=== PATIENT | female | born 1985 ===

== ENCOUNTER 2017-11-09 14:56 | Emergency (ER) | payer BC ==
[2017-11-09 15:25] VITALS: BMI 22.7
[2017-11-09 15:26] VITALS: RESP 18
--- NOTE | 2017-11-09 16:25 | ED PDOC ---
Arrival/HPI - General Historian: Patient - History of Present Illness Time/Duration: < week Symptom Onset: Gradual Symptom Course: Unchanged Quality: Cramping Severity Level: 7 Activities at Onset: Rest <Shawn Hong - Last Filed: 11/09/17 17:18> <Galindo Miller - Last Filed: 11/09/17 19:18> - General Chief Complaint: Abdominal Pain Time Seen by Provider: 11/09/17 15:34 - History of Present Illness Narrative History of Present Illness (Text): 11/09/17 16:22 PGY-[address] Miller Patient is a 32 year old with no known signficant PMHx who presents with crampy abdominal pain and discharge. Pt states that she began experiencing intermittent crampy, nonradiating, epigastric abdominal pain just over one week ago before missing her period on 11/01. On Saturday 11/04 the patient states she took a home test which was positive. In the past three days, patient reports that she has been noticing clear, brownish discharge when she wipes after going to the bathroom and came to the ED today because of concern for the health of her possible . Patient states that her first was without complications and delivered via at full term. Patient denies smoking, alcohol, drug use, any previous history of STDs. She has not yet seen a doctor since her positive test on the . Patient complains only of mild headaches and minor dizziness when standing. Denies chest pain, back pain, shortness of breath, fevers or chills, nausea, vomiting, diarrhea, bloody stools, pedal edema, paresthesias, painful urination 11/09/17 17:09 (Shawn Hong) Past Medical History - Provider Review Nursing Documentation Reviewed: Yes - Infectious Disease Hx of Infectious Diseases: None - Tetanus Immunization Tetanus Immunization: Unknown - Reproductive Menopause: No Currently : Unknown - Past Medical History Past Medical History: Non-Contributing - Psychiatric Hx Substance Use: No - Surgical History Hx Section: Yes (x1) <Shawn Hong - Last Filed: 11/09/17 17:18> - Provider Review Nursing Documentation Reviewed: Yes <Galindo Miller - Last Filed: 11/09/17 19:18> Family/Social History Family/Social History: No Known Family HX Smoking Status: Never Smoked Hx Alcohol Use: No Hx Substance Use: No <Shawn Hong - Last Filed: 11/09/17 17:18> - Physician Review Nursing Documentation Reviewed: Yes <AngelaGalindo Mustapha - Last Filed: 11/09/17 19:18> Allergies/Home Meds <Shawn Hong - Last Filed: 11/09/17 17:18> <Galindo Miller Mustapha - Last Filed: 11/09/17 19:18> Allergies/Adverse Reactions: Allergies Penicillins Allergy (Verified 11/09/17 15:24) RASH Home Medications: Home Meds Medication Instructions Recorded Confirmed No Known Home Med 11/09/17 11/09/17 Review of Systems - Review of Systems Constitutional: Normal. absent: Fatigue, Fevers, Night Sweats Eyes: Normal. absent: Vision Changes ENT: Normal. absent: Sore Throat, Rhinorrhea Respiratory: Normal. absent: SOB, Cough, Sputum, Wheezing Cardiovascular: Normal. absent: Chest Pain, Palpitations, Edema, BUSBY Gastrointestinal: Abdominal Pain. absent: Stool Changes, Constipation, Diarrhea , Nausea, Vomiting, Hematochezia, Hematemesis Genitourinary Female: Vaginal Discharge (+small amount serous brown vaginal discharge). absent: Dysuria, Frequency, Hematuria Skin: absent: Rash, Pruritis Neurological: Normal. absent: Headache, Dizziness, Focal Weakness Hemo/Lymphatic: absent: Easy Bleeding, Easy Bruising <Shawn Hong - Last Filed: 11/09/17 17:18> Physical Exam Vital Signs Reviewed: Yes Temperature: Afebrile Blood Pressure: Normal Pulse: Regular Respiratory Rate: Normal Appearance: Positive for: Well-Appearing, Non-Toxic, Comfortable Pain Distress: None Mental Status: Positive for: Alert and Oriented X 3. No: Confused, Agitated - Systems Exam Head: Present: Atraumatic, Normocephalic Pupils: Present: PERRL Extroacular Muscles: Present: EOMI Conjunctiva: Present: Normal. No: Injected, Icteric Mouth: Present: Moist Mucous Membranes, Normal Lips, Normal Tounge Pharnyx: Present: Normal. No: ERYTHEMA, EXUDATE Nose (External): Present: Atraumatic Respiratory/Chest: Present: Clear to Auscultation, Good Air Exchange. No: Respiratory Distress, Accessory Muscle Use, Wheezes, Decreased Breath Sounds, Rales, Rhonchi Cardiovascular: Present: Regular Rate and Rhythm, Normal S1, S2. No: Murmurs Abdomen: Present: Normal Bowel Sounds. No: Tenderness, Distention, Peritoneal Signs, Rebound, Guarding Upper Extremity: Present: Normal Inspection, NORMAL PULSES. No: Cyanosis, Edema Lower Extremity: Present: Normal Inspection, NORMAL PULSES. No: Edema Neurological: Present: GCS=15, CN II-XII Intact, Speech Normal, Motor Func Grossly Intact, Normal Sensory Function, Gait Normal Skin: Present: Warm, Dry, Normal Color. 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 spontaneous vs. ectopic vs non- related causes (endometriosis, ruptured ovarian cyst, UTI) Urinalysis + Beta-HCG to confirm and r/o UTI Beta-quant - If >1500 will perform abdominal US to assess IUP vs ectopic, If < 1500 repeat in 48 hours to trend and r/o spontaneous , f/u with abd US when >1500 If is confirmed in the absence of any acute complications, plan to follow up outpatient for routine care 11/09/17 16:54 11/09/17 17:19 Beta-Quant 8530, Transvaginal US ordered (Shawn Hong) 11/09/17 In agreement with resident note, which includes further HPI details. Patient was seen and evaluated with resident, came up with plan and treatment together. 32 year old F p/w abdominal cramping in . On exam, no abdominal tenderness. 11/09/17 18:15 Pelvic ultrasound: Creator : Keegan Stanley MD FINDINGS: Uterus measures 4.8 x 4.5 x 7.5 cm. Gestational sac identified without pole. Gestational sac measurement 0.69 cm out of range for assessment of reliable gestational age. Yolk sac is identified. Right ovary 3 x 2.9 x 3.1 cm. Simple cyst 2.4 x 2.4 x 2.4 cm. Left ovary 0.9 x 1.1 x 2.6 cm. IMPRESSION: Early intrauterine gestation based on gestational sac and yolk sac. No pole is identified. Additional benign and/or incidental findings described above. O+ blood type. Urinalysis negative for infection. Discharged home, tylenol for pain as needed, f/u OBGYN, instructed to return to Emergency department for worsening pain, bleeding, dyspnea, or any other problem. (Galindo Miller) - Lab Interpretations Lab Results: 11/09/17 16:22 11/09/17 16:22 Lab Results 11/09/17 18:46: Urine Color Yellow, Urine Appearance Clear, Urine pH 6.0, Ur Specific [place] 1.025, Urine Protein Negative, Urine Glucose (UA) Negative, Urine Ketones Negative, Urine Blood Negative, Urine Nitrate Negative, Urine Bilirubin Negative, Urine Urobilinogen 0.2, Ur Leukocyte Esterase Negative, Urine HCG, Qual Negative 11/09/17 16:22: Blood Type O POSITIVE, Antibody Screen Negative, BBK History Checked No verified bt 11/09/17 16:22: Beta HCG, Quant 8529.60 H 11/09/17 16:22: Sodium 141, Potassium 4.1, Chloride 101, Carbon Dioxide 26, Anion Gap 18, BUN 12, Creatinine 0.7, Est GFR ( Amer) > 60, Est GFR (Non- Af Amer) > 60, Random Glucose 92, Calcium 9.9, Total Bilirubin 1.0, AST 36, ALT 26, Alkaline Phosphatase 70, Total Protein 8.6 H, Albumin 4.9 H, Globulin 3.7, Albumin/Globulin Ratio 1.3 11/09/17 16:22: WBC 10.2, RBC 4.12, Hgb 12.5, Hct 36.6, MCV 88.8, MCH 30.3, MCHC 34.2, RDW 12.6, Plt Count 267, MPV 11.3 H, Gran % 68.6 H, Lymph % (Auto) 23.3, [place] % (Auto) 6.8 H, Eos % (Auto) 0.8 L, Baso % (Auto) 0.5, Gran # 6.96 H , Lymph # (Auto) 2.4, [place] # (Auto) 0.7 H, Eos # (Auto) 0.1, Baso # (Auto) 0.05 - RAD Interpretation Radiology Orders: 11/09/17 16:13 OB TRANSVAGINAL [US] Stat Disposition/Present on Arrival - Present on Arrival Any Indicators Present on Arrival: No History of DVT/PE: No History of Uncontrolled Diabetes: No Urinary Catheter: No History of Decub. Ulcer: No History Surgical Site Infection Following: None - Disposition Have Diagnosis and Disposition been Completed?: Yes Disposition Time: 17:08 <Shawn Hong - Last Filed: 11/09/17 17:18> - Disposition Patient Plan: Discharge <Galindo Miller - Last Filed: 11/09/17 19:18> - Disposition Diagnosis: Abdominal pain during Disposition: HOME/ ROUTINE Condition: FAIR Discharge Instructions (ExitCare): Threatened Miscarriage Referrals: Gypsy Romero MD [Staff Provider] - Follow up with primary Forms: [employer] ([place])
[2017-11-09 16:32] LABS: BASO # 0.05 K/mm3 (0.0-2.0); BASO % 0.5 % (0.0-3.0); EOS # 0.1 (0.0-0.7); EOS % 0.8 % (1.5-5.0); GRAN # 6.96 (1.4-6.5); GRAN % 68.6 % (50.0-68.0); HEMOGLOBIN 12.5 g/dL (12.0-16.0); LYMPH # 2.4 (1.2-3.4); LYMPH % 23.3 % (22.0-35.0); MEAN CELL VOLUME 88.8 fl (80.0-105.0); MEAN CORPUSCULAR HEMOGLOBIN 30.3 pg (25.0-35.0); MEAN CORPUSCULAR HGB CONC 34.2 g/dl (31.0-37.0); MEAN PLATELET VOLUME 11.3 fl (7.0-11.0); MONO # 0.7 (0.1-0.6); MONO % 6.8 % (1.0-6.0); RBC 4.12 10^6/uL (3.5-6.1); RED CELL DISTRIBUTION WIDTH 12.6 % (11.5-14.5); WHITE BLOOD COUNT 10.2 10^3/ul (4.5-11.0)
[2017-11-09 17:02] LABS: ALB/GLOB RATIO 1.3 (1.1-1.8); ALBUMIN 4.9 g/dL (3.0-4.8); ALT/SGPT 26 U/L (7-56); AST/SGOT 36 U/L (14-36); BLOOD UREA NITROGEN 12 mg/dL (7-21); CALCIUM 9.9 mg/dL (8.4-10.5); GFR AFRICAN-AMERICAN > 60; GFR NON-AFRICAN AMERICAN > 60
--- NOTE | 2017-11-09 17:52 | US ---
Date of service: 11/09/2017 PROCEDURE: Pelvic ultrasound HISTORY: vag bleed/pain in preg, assess cervix LMP 10/02/2017. COMPARISON: None available. TECHNIQUE: Standard protocol for this study/examination. FINDINGS: Uterus measures 4.8 x 4.5 x 7.5 cm. Gestational sac identified without pole. Gestational sac measurement 0.69 cm out of range for assessment of reliable gestational age. Yolk sac is identified. Right ovary 3 x 2.9 x 3.1 cm. Simple cyst 2.4 x 2.4 x 2.4 cm. Left ovary 0.9 x 1.1 x 2.6 cm. IMPRESSION: Early intrauterine gestation based on gestational sac and yolk sac. No pole is identified Additional benign and/or incidental findings described above.
[2017-11-09 18:58] LABS: HCG,QUALITATIVE URINE NEGATIVE (NEGATIVE); URINE APPEARANCE CLEAR (CLEAR); URINE COLOR YELLOW (YELLOW)
[2017-11-09 18:59] LABS: URINE BILIRUBIN NEGATIVE (NEGATIVE); URINE BLOOD NEGATIVE (NEGATIVE); URINE GLUCOSE (UA) NEGATIVE (NEGATIVE); URINE LEUKOCYTE ESTERASE NEGATIVE Leu/uL (NEGATIVE); URINE PROTEIN NEGATIVE mg/dL (<30 mg/dL); URINE UROBILINOGEN 0.2 E.U./dL (<1 E.U./dL)
[2017-11-09 19:14] VITALS: BP 129/77; PULSE 99; TEMP 98
[2017-11-09 19:15] VITALS: O2SAT 98
== END 2017-11-09 19:15 | disposition home or self-care (01) ==
LOC: ED 14:56
DX: O26.891 Other specified pregnancy related conditions, first trimester (principal); R10.9 Unspecified abdominal pain; Z3A.00 Weeks of gestation of pregnancy not specified

== ENCOUNTER 2017-11-22 16:58 | Emergency (ER) | payer BC ==
[2017-11-22 17:00] VITALS: BMI 22.7
--- NOTE | 2017-11-22 17:22 | ED PDOC ---
Arrival/HPI - General Time Seen by Provider: 11/22/17 17:02 Historian: Patient - History of Present Illness Narrative History of Present Illness (Text): 11/22/17 17:25 32 y/o female, no significant pmh, allergic to penicillin, LMP 09/21/2017, , c/o vaginal spotting and pelvic cramp started yesterday with no fall or trauma. Aching pain, on and off, noted to have spotting when using the bathroom , no active bleeding, no abdominal pain, eating and drinking well, no night sweat, no dizziness, no change in vision, no change in appetite, no other medical or psychological complaints. Past Medical History - Provider Review Nursing Documentation Reviewed: Yes - Infectious Disease Hx of Infectious Diseases: None - Tetanus Immunization Tetanus Immunization: Unknown - Reproductive Menopause: No - Past Medical History Past Medical History: Non-Contributing - Cardiac Hx Cardiac Disorders: No - Endocrine/Metabolic Hx Endocrine Disorders: No - Psychiatric Hx Substance Use: No - Surgical History Hx Section: Yes (x1) - Anesthesia Hx Anesthesia: No Family/Social History - Physician Review Nursing Documentation Reviewed: Yes Family/Social History: Unknown Family HX Smoking Status: Never Smoked Hx Alcohol Use: No Hx Substance Use: No Allergies/Home Meds Allergies/Adverse Reactions: Allergies Penicillins Allergy (Verified 11/09/17 15:24) RASH Home Medications: Home Meds Medication Instructions Recorded Confirmed No Known Home Med 11/09/17 11/22/17 Review of Systems - Review of Systems Constitutional: absent: Fatigue, Fevers Eyes: absent: Vision Changes ENT: absent: Hearing Changes Respiratory: absent: SOB, Cough Cardiovascular: absent: Chest Pain Gastrointestinal: absent: Abdominal Pain, Nausea, Vomiting Genitourinary Female: Vaginal Bleeding. absent: Dysuria, Frequency Musculoskeletal: absent: Arthralgias, Back Pain Skin: absent: Rash, Pruritis Neurological: absent: Headache, Dizziness Psychiatric: absent: Anxiety, Depression Physical Exam Vital Signs Reviewed: Yes Vital Signs Temp Pulse Resp BP Pulse Ox 11/22/17 19:23 85 18 111/66 100 11/22/17 17:47 98.3 F 11/22/17 17:43 87 18 104/58 L 100 11/22/17 17:12 99.2 F 98 H 18 140/75 100 Temperature: Afebrile Blood Pressure: Normal Pulse: Regular Respiratory Rate: Normal Appearance: Positive for: Well-Appearing, Non-Toxic, Comfortable Pain Distress: Mild Mental Status: Positive for: Alert and Oriented X 3 - Systems Exam Head: Present: Atraumatic, Normocephalic Pupils: Present: PERRL Extroacular Muscles: Present: EOMI Conjunctiva: Present: Normal Mouth: Present: Moist Mucous Membranes Neck: Present: Normal Range of Motion Respiratory/Chest: Present: Clear to Auscultation, Good Air Exchange. No: Respiratory Distress, Accessory Muscle Use Cardiovascular: Present: Regular Rate and Rhythm, Normal S1, S2. 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 ). No: Vaginal Discharge, Vaginal Bleeding, Vaginal Lesions, Adenexal Tenderness, Adenexal Mass , Cervical Motion Tendernes, Odor Back: Present: Normal Inspection Upper Extremity: Present: Normal Inspection. No: Cyanosis, Edema Lower Extremity: Present: Normal Inspection. No: Edema Neurological: Present: GCS=15, CN II-XII Intact, Speech Normal, Motor Func Grossly Intact, Gait Normal, Memory Normal Skin: Present: Warm, Dry, Normal Color. No: Rashes Psychiatric: Present: Alert, Oriented x 3, Normal Insight, Normal Concentration Medical Decision Making ED Course and Treatment: 11/22/17 17:27 Differential: Threatened vs. ectopic vs. UTI -Labs/betahcg/type and screen/ua -transvaginal sonogram -IVF/tylenol 650mg po -Observe and reassess 11/22/17 19:45 -There is no visible active bleeding or blood clot noted. -Transvaginal sonogram: Seven weeks 2 days live intrauterine gestation. Gestational concordance documented. -labs are non-significant except wbc 11.5 (afebrile, likely stress [place]) [place] [address] [place] 8529 -UA show no UTI -Blood type: O+ -Pt. feeling much better, no active bleeding, no pain, all labs/radiology results discussed with the patient. -Discharge home with education on continue tylenol at home as needed, bed rest, no sex until clear by the obgyn, follow up with your own pmd and obgyn within 2 days and check your cbc again as well, return to the ER for any new or worsening signs or symptoms. - Lab Interpretations Lab Results: 11/22/17 17:30 11/22/17 17:30 Lab Results 11/22/17 17:30: Blood Type O POSITIVE, Antibody Screen Negative, BBK History Checked Patient has bt 11/22/17 17:30: WBC 11.5 H, RBC 4.06, Hgb 12.5, Hct 36.0, MCV 88.7, MCH 30.8, MCHC 34.7, RDW 12.7, Plt Count 262, MPV 11.5 H, Gran % 64.0, Lymph % (Auto) 23.8 , [place] % (Auto) 9.7 H, Eos % (Auto) 2.2, Baso % (Auto) 0.3, Gran # 7.39 H, Lymph # (Auto) 2.7, [place] # (Auto) 1.1 H, Eos # (Auto) 0.3, Baso # (Auto) 0.03 11/22/17 17:30: Beta HCG, Quant 44927.00 H 11/22/17 17:30: Sodium 141, Potassium 3.5 L, Chloride 100, Carbon Dioxide 26, Anion Gap 19, BUN 10, Creatinine 0.5 L, Est GFR ( Amer) > 60, Est GFR ( Non-Af Amer) > 60, Random Glucose 89, Calcium 10.0, Total Bilirubin 0.9, AST 25 , ALT 26, Alkaline Phosphatase 84, Total Protein 9.0 H, Albumin 5.0 H, Globulin 4.0, Albumin/Globulin Ratio 1.3 11/22/17 17:30: Urine Color Yellow, Urine Appearance Clear, Urine pH 6.0, Ur Specific [place] >= 1.030, Urine Protein Negative, Urine Glucose (UA) Negative, Urine Ketones Trace H, Urine Blood Negative, Urine Nitrate Negative, Urine Bilirubin Negative, Urine Urobilinogen 0.2, Ur Leukocyte Esterase Negative - RAD Interpretation Radiology Orders: 11/22/17 17:24 OB TRANSVAGINAL [US] Stat Cardiac activity: Present Rate: 156 BPM Measurements: [place] rump length: 1.41 cm Gestational age based on CRL 7 weeks 5 days Gestational age 6 weeks 5 days based on gestational sac measurement 2.12 cm Gestational age derived from LMP: 7 weeks 2 days MANAV based on LMP: 07/09/2018. MANAV based on biometry: 07/09/2018. Gestational concordance documented. Yolk sac identified Cervix: No Cervical abnormalities: Negative examination for cervical dilatation or effacement. Closed cervix measuring 3.72 cm Subchorionic hemorrhage: None UTERUS: 4.8 x 6.9 x 9.0 cm. ADNEXA: Right: 3.2 x 4 x 4.3 cm. Simple cysts, presumed corpus luteum cyst 2.5 x 2.3 x 3 cm. Normal Doppler arterial waveform documented. Left: 1.5 x 2 x 3.0 cm. Normal Doppler arterial waveform documented Fluid in the cul-de-sac: None IMPRESSION: Seven weeks 2 days live intrauterine gestation. Gestational concordance documented. 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 - Medication Orders Current Medication Orders: Discontinued Medications Acetaminophen (Tylenol 325mg Tab) 650 mg PO STAT STA Stop: 11/22/17 17:25 Last Admin: 11/22/17 17:42 Dose: 650 mg Sodium Chloride (Sodium Chloride 0.9%) 1,000 mls @ 999 mls/hr IV .Q1H1M STA Stop: 11/22/17 18:24 Last Admin: 11/22/17 17:41 Dose: 999 mls/hr eMAR Start Stop Document 11/22/17 17:41 SF (Rec: 11/22/17 17:41 SF [facility] [id number] Intravenous Solution Start Date 11/22/17 Start Time 17:41 End Date 11/22/17 End time 18:42 Total Infusion Time 61 - [place] / COUNTY EXTENSION AGENT / Resident Statement MD/DO has reviewed & agrees with the documentation as recorded. Disposition/Present on Arrival - Present on Arrival Any Indicators Present on Arrival: No History of DVT/PE: No History of Uncontrolled Diabetes: No Urinary Catheter: No History of Decub. Ulcer: No History Surgical Site Infection Following: None - Disposition Have Diagnosis and Disposition been Completed?: Yes Diagnosis: , Vaginal bleeding Disposition: HOME/ ROUTINE Disposition Time: 19:39 Patient Plan: Discharge Patient Problems: Current Active Problems Problem Status Onset Acute Vaginal bleeding Acute Condition: IMPROVED Additional Instructions: -Discharge home with education on continue tylenol at home as needed, bed rest, no sex until clear by the obgyn, follow up with your own pmd and obgyn within 2 days and check your cbc again as well, return to the ER for any new or worsening signs or symptoms. Referrals: Rob Edmonds MD [Staff Provider] - Follow up with primary [facility] [place]] - Follow up with primary Forms: WORK NOTE
[2017-11-22] MEDS ORDERED: Sodium Chloride 0.9% 1,000 ML IV STA (17:24)
[2017-11-22 17:45] VITALS: RESP 18; O2SAT 100
[2017-11-22 17:45] LABS: URINE APPEARANCE CLEAR (CLEAR); URINE BILIRUBIN NEGATIVE (NEGATIVE); URINE BLOOD NEGATIVE (NEGATIVE); URINE COLOR YELLOW (YELLOW); URINE GLUCOSE (UA) NEGATIVE (NEGATIVE); URINE LEUKOCYTE ESTERASE NEGATIVE Leu/uL (NEGATIVE); URINE PROTEIN NEGATIVE mg/dL (<30 mg/dL); URINE UROBILINOGEN 0.2 E.U./dL (<1 E.U./dL)
[2017-11-22 18:02] LABS: BASO # 0.03 K/mm3 (0.0-2.0); BASO % 0.3 % (0.0-3.0); EOS # 0.3 (0.0-0.7); EOS % 2.2 % (1.5-5.0); GRAN # 7.39 (1.4-6.5); HEMOGLOBIN 12.5 g/dL (12.0-16.0); LYMPH # 2.7 (1.2-3.4); LYMPH % 23.8 % (22.0-35.0); MEAN CELL VOLUME 88.7 fl (80.0-105.0); MEAN CORPUSCULAR HEMOGLOBIN 30.8 pg (25.0-35.0); MEAN CORPUSCULAR HGB CONC 34.7 g/dl (31.0-37.0); MEAN PLATELET VOLUME 11.5 fl (7.0-11.0); MONO # 1.1 (0.1-0.6); MONO % 9.7 % (1.0-6.0); RBC 4.06 10^6/uL (3.5-6.1); RED CELL DISTRIBUTION WIDTH 12.7 % (11.5-14.5); WHITE BLOOD COUNT 11.5 10^3/ul (4.5-11.0)
[2017-11-22 18:29] LABS: ALB/GLOB RATIO 1.3 (1.1-1.8); ALT/SGPT 26 U/L (7-56); AST/SGOT 25 U/L (14-36); BLOOD UREA NITROGEN 10 mg/dL (7-21); GFR AFRICAN-AMERICAN > 60; GFR NON-AFRICAN AMERICAN > 60
--- NOTE | 2017-11-22 18:49 | US ---
Date of service: 11/22/2017 PROCEDURE: First trimester ultrasound HISTORY: , vaginal spotting x 1 day COMPARISON: 11/09/2017.. TECHNIQUE: Standard protocol for this study/examination. FINDINGS: LMP: 10/02/2017 Prior examinations from the current : 11/09/2017. TECHNIQUE: Real-time 2D imaging, duplex and color Doppler. FINDINGS: Cardiac activity: Present Rate: 156 BPM Measurements: [place] rump length: 1.41 cm Gestational age based on CRL 7 weeks 5 days Gestational age 6 weeks 5 days based on gestational sac measurement 2.12 cm Gestational age derived from LMP: 7 weeks 2 days MANAV based on LMP: 07/09/2018. MANAV based on biometry: 07/09/2018. Gestational concordance documented. Yolk sac identified Cervix: No Cervical abnormalities: Negative examination for cervical dilatation or effacement. Closed cervix measuring 3.72 cm Subchorionic hemorrhage: None UTERUS: 4.8 x 6.9 x 9.0 cm. ADNEXA: Right: 3.2 x 4 x 4.3 cm. Simple cysts, presumed corpus luteum cyst 2.5 x 2.3 x 3 cm. Normal Doppler arterial waveform documented. Left: 1.5 x 2 x 3.0 cm. Normal Doppler arterial waveform documented Fluid in the cul-de-sac: None IMPRESSION: Seven weeks 2 days live intrauterine gestation. Gestational concordance documented.
[2017-11-22 19:24] VITALS: BP 111/66; PULSE 85
[2017-11-22 19:58] VITALS: TEMP 98.4
== END 2017-11-22 19:56 | disposition home or self-care (01) ==
LOC: ED 16:58
DX: O46.91 Antepartum hemorrhage, unspecified, first trimester (principal); Z3A.01 Less than 8 weeks gestation of pregnancy
CPT/HCPCS: 76817; 80053; 81003; 84702; 85025; 86850; 86900; 96360; 99285; J7030